=== PATIENT | female | born 1985 | race Two or more races ===

== ENCOUNTER 2021-03-07 13:52 | Inpatient (IN) | payer MEDICAID, OTHER ==
[~2021-03-07] VITALS: Ht 157.5 cm; Wt 93.5 kg
[2021-03-07 15:37] LABS: Urine Bacteria FEW /hpf (None Seen); Urine Blood 1+ /uL (Negative); Urine Mucus FEW (None Seen); Urine WBC 12 /hpf (0 - 5)
[2021-03-07 16:02] LABS: Basophils # (auto) 0.1 10 ^3/uL (0-0.2); Basophils % (auto) 0.4 % (0.0-2.0); Eosinophils # (auto) 0 10 ^3/uL (0-0.8); Eosinophils % (auto) 0.1 % (0.0-7.0); Hematocrit 39.6 % (36.0-46.0); Hemoglobin 13.2 g/dL (12.2-16.2); Lymphocytes # (auto) 1.2 10 ^3/uL (0.4-5.4); Mean Corpuscular Hemoglobin 27.2 pg (28.0-32.0); Mean Corpuscular Hgb Conc. 33.3 g/dL (32.0-36.0); Mean Corpuscular Volume 81.8 fL (80.0-100.0); Monocytes # (auto) 0.6 10 ^3/uL (0-1.3); Monocytes % (auto) 4.4 % (0.0-12.0); Neutrophils # (auto) 11.3 10 ^3/uL (1.6-8.6); Neutrophils % (auto) 86.1 % (37.0-80.0); Nucleated Red Blood Cells % 0.1 %; Red Blood Cells 4.83 10^6/uL (4.0-5.20); Red Cell Distribution Width 14.6 % (11.8-14.3); White Blood Cell 13.2 10^3/uL (4.4-10.8)
[2021-03-07 16:28] LABS: Albumin 2.8 g/dL (3.4-5.0); BUN/Creatinine Ratio 9.7; Bilirubin, Total 0.8 mg/dL (0.2-1.0); Calcium 8.5 mg/dL (8.5-10.1); Total Protein 6.7 g/dL (6.4-8.2)
[2021-03-07] MEDS ORDERED: IOHEXOL 300 MG/ML 100ML BOTTLE IJ ONE (18:37)
[2021-03-07] MEDS ORDERED: ACETAMINOPHEN 325 MG TAB PO ONE (18:45)
[2021-03-07] MEDS ORDERED: ONDANSETRON HCL 4 MG/2 ML VIAL IV ONE (18:45)
[2021-03-07] MEDS ORDERED: FAMOTIDINE (10MG/ML) 2ML VL IV ONE (18:45)
[2021-03-07] MEDS ORDERED: DOXYCYCLINE 100MG/250ML 250 ML IV ONE (20:15)
[2021-03-07] MEDS ORDERED: cefTRIAXone 1GM/50ML D5W 50 ML IV ONE (20:15)
[2021-03-07] MEDS ORDERED: metroNIDAZOLE 500MG/100ML 100 ML IV ONE (20:15)
[2021-03-07] MEDS ORDERED: LACTATED RINGER'S 1,000 ML IV ONE (20:15)
[2021-03-07] MEDS ORDERED: HYDROcodone-ACET 5/325MG TAB PO ONE (20:45)
[2021-03-08] MEDS ORDERED: DEXTROSE (50%) 50ML SYRG IV PRN (01:15)
[2021-03-08] MEDS ORDERED: MORPHINE SULFATE INJECTION 2 MG/ML SYRG IV PRN (02:45)
[2021-03-08] MEDS ORDERED: NITROGLYCERIN 0.4 MG SL TAB SL PRN (02:45)
[2021-03-08] MEDS: ONDANSETRON HCL 4 MG/2 ML VIAL IV PRN ×2 (03:00→09:20)
[2021-03-08] MEDS: SODIUM CHLORIDE 0.9% 1,000 ML IV SCH ×2 (03:00→18:20)
[2021-03-08 03:31] LABS: Basophils # (auto) 0.1 10 ^3/uL (0-0.2); Basophils % (auto) 0.7 % (0.0-2.0); Eosinophils # (auto) 0.1 10 ^3/uL (0-0.8); Eosinophils % (auto) 0.5 % (0.0-7.0); Hematocrit 37.5 % (36.0-46.0); Hemoglobin 12.3 g/dL (12.2-16.2); Lymphocytes # (auto) 1.4 10 ^3/uL (0.4-5.4); Mean Corpuscular Hemoglobin 27.3 pg (28.0-32.0); Mean Corpuscular Hgb Conc. 32.8 g/dL (32.0-36.0); Mean Corpuscular Volume 83.2 fL (80.0-100.0); Monocytes # (auto) 0.7 10 ^3/uL (0-1.3); Monocytes % (auto) 5.4 % (0.0-12.0); Neutrophils # (auto) 11.3 10 ^3/uL (1.6-8.6); Neutrophils % (auto) 83.4 % (37.0-80.0); Nucleated Red Blood Cells % 0.1 %; Red Cell Distribution Width 14.3 % (11.8-14.3); White Blood Cell 13.6 10^3/uL (4.4-10.8)
[2021-03-08 03:42] LABS: Albumin 2.5 g/dL (3.4-5.0); BUN/Creatinine Ratio 16.4; Calcium 8.2 mg/dL (8.5-10.1); Potassium 4.3 mmol/L (3.5-5.1)
[2021-03-08 03:45] LABS: Bilirubin, Total 0.7 mg/dL (0.2-1.0); Total Protein 6.6 g/dL (6.4-8.2)
[2021-03-08] MEDS: InsuLIN REG 1unit/0.01ml Soln (100units/ml) SC SCH ×3 (06:30→18:20)
[2021-03-08] MEDS: metroNIDAZOLE 500MG/100ML 100 ML IV SCH ×2 (06:30→13:56)
[2021-03-08] MEDS: ACCU-CHEK COMFORT CURVE STRIP VI SCH ×3 (06:30→18:19)
[2021-03-08] MEDS: FAMOTIDINE (10MG/ML) 2ML VL IV SCH (09:20)
[2021-03-08] MEDS: MORPHINE SULFATE 4 MG/ML SYR/VIAL IV PRN ×2 (09:21→13:56)
[2021-03-08] MEDS: HYDROcodone-ACET 5/325MG TAB PO PRN ×2 (11:16→17:25)
[2021-03-08] MEDS: ACETAMINOPHEN 325 MG TAB PO PRN (19:57)
[2021-03-09] MEDS: MORPHINE SULFATE 4 MG/ML SYR/VIAL IV PRN ×2 (00:14→17:53)
[2021-03-09] MEDS: InsuLIN REG 1unit/0.01ml Soln (100units/ml) SC SCH ×5 (02:09→23:59)
[2021-03-09] MEDS: HYDROcodone-ACET 5/325MG TAB PO PRN ×3 (02:09→14:13)
[2021-03-09] MEDS: cefTRIAXone 1GM/50ML D5W 50 ML IV SCH ×2 (02:21→22:38)
[2021-03-09] MEDS: FAMOTIDINE (10MG/ML) 2ML VL IV SCH ×3 (02:21→22:38)
[2021-03-09] MEDS: metroNIDAZOLE 500MG/100ML 100 ML IV SCH ×4 (04:00→22:38)
[2021-03-09 06:06] LABS: Basophils # (auto) 0 10 ^3/uL (0-0.2); Basophils % (auto) 0.2 % (0.0-2.0); Eosinophils # (auto) 0.1 10 ^3/uL (0-0.8); Eosinophils % (auto) 0.6 % (0.0-7.0); Hematocrit 36.1 % (36.0-46.0); Lymphocytes # (auto) 1.1 10 ^3/uL (0.4-5.4); Lymphocytes % (auto) 8.6 % (10.0-50.0); Mean Corpuscular Hemoglobin 27.7 pg (28.0-32.0); Mean Corpuscular Hgb Conc. 33.3 g/dL (32.0-36.0); Mean Corpuscular Volume 83.3 fL (80.0-100.0); Monocytes # (auto) 0.9 10 ^3/uL (0-1.3); Monocytes % (auto) 6.5 % (0.0-12.0); Neutrophils % (auto) 84.1 % (37.0-80.0); Nucleated Red Blood Cells % 0.3 %; Red Blood Cells 4.33 10^6/uL (4.0-5.20); Red Cell Distribution Width 14.6 % (11.8-14.3); White Blood Cell 13.1 10^3/uL (4.4-10.8)
[2021-03-09 06:24] LABS: Alanine Aminotransferase 12 U/L (13-56); Albumin 1.8 g/dL (3.4-5.0); Anion Gap 11 (5-15); Aspartate Aminotransferase 18 U/L (15-37); BUN/Creatinine Ratio 11.9; Blood Urea Nitrogen 5 mg/dL (7-18); Calcium 8.1 mg/dL (8.5-10.1); Carbon Dioxide 18 mmol/L (21-32); Chloride 105 mmol/L (98-107); GFR African American 222 mL/min; GFR Non-African American 184 mL/min; Glucose 186 mg/dL (74-106); Potassium 4.7 mmol/L (3.5-5.1); Sodium 134 mmol/L (136-145)
[2021-03-09 06:27] LABS: Alkaline Phosphatase 105 U/L (45-117); Bilirubin, Total 0.4 mg/dL (0.2-1.0); Total Protein 6.4 g/dL (6.4-8.2)
[2021-03-09] MEDS: ACCU-CHEK COMFORT CURVE STRIP VI SCH ×5 (07:38→23:59)
[2021-03-09] MEDS: SODIUM CHLORIDE 0.9% 1,000 ML IV SCH ×2 (10:35→22:39)
[2021-03-09] MEDS ORDERED: HYDROmorphone HCL 2 MG/ML VL IV ONE (10:45)
[2021-03-09] MEDS: ONDANSETRON HCL 4 MG/2 ML VIAL IV PRN (10:59)
[2021-03-09] MEDS ORDERED: HYDROmorphone HCL 2 MG/ML VL ONE (11:19)
[2021-03-09] MEDS: DOXYCYCLINE 100MG/250ML 250 ML IV SCH (15:15)
[2021-03-09] MEDS ORDERED: INSU1INJ19 SC (16:43)
[2021-03-10] VITALS: BP 111/62
[2021-03-10] MEDS: ACETAMINOPHEN 325 MG TAB PO PRN
[2021-03-10] MEDS: MORPHINE SULFATE 4 MG/ML SYR/VIAL IV PRN (01:32)
[2021-03-10 05:03] LABS: Basophils # (auto) 0 10 ^3/uL (0-0.2); Eosinophils # (auto) 0 10 ^3/uL (0-0.8); Eosinophils % (auto) 0.4 % (0.0-7.0); Hemoglobin 11.5 g/dL (12.2-16.2); Lymphocytes # (auto) 1.1 10 ^3/uL (0.4-5.4); Monocytes # (auto) 0.8 10 ^3/uL (0-1.3)
[2021-03-10 05:05] LABS: Basophils % (auto) 0.2 % (0.0-2.0); Hematocrit 35.4 % (36.0-46.0); Lymphocytes % (auto) 10.7 % (10.0-50.0); Mean Corpuscular Hemoglobin 26.8 pg (28.0-32.0); Mean Corpuscular Hgb Conc. 32.5 g/dL (32.0-36.0); Mean Corpuscular Volume 82.3 fL (80.0-100.0); Monocytes % (auto) 7.9 % (0.0-12.0); Neutrophils # (auto) 8.4 10 ^3/uL (1.6-8.6); Neutrophils % (auto) 80.8 % (37.0-80.0); Nucleated Red Blood Cells % 0.1 %; Red Cell Distribution Width 14.4 % (11.8-14.3); White Blood Cell 10.4 10^3/uL (4.4-10.8)
[2021-03-10 05:14] LABS: Albumin 1.8 g/dL (3.4-5.0); Calcium 8.2 mg/dL (8.5-10.1); Magnesium 2.1 mg/dL (1.6-2.6); Potassium 4.8 mmol/L (3.5-5.1)
[2021-03-10 05:20] LABS: BUN/Creatinine Ratio 11.4; Bilirubin, Total 0.3 mg/dL (0.2-1.0); Total Protein 6.4 g/dL (6.4-8.2)
[2021-03-10] MEDS: HYDROcodone-ACET 5/325MG TAB PO PRN ×5 (07:10→22:17)
[2021-03-10] MEDS: metroNIDAZOLE 500MG/100ML 100 ML IV SCH ×3 (08:56→22:17)
[2021-03-10] MEDS: DOXYCYCLINE 100MG/250ML 250 ML IV SCH ×2 (08:57→15:15)
[2021-03-10] MEDS: InsuLIN REG 1unit/0.01ml Soln (100units/ml) SC SCH ×5 (08:59→22:14)
[2021-03-10 09:00] VITALS: BP 120/63
[2021-03-10] MEDS: ACCU-CHEK COMFORT CURVE STRIP VI SCH ×3 (09:00→17:06)
[2021-03-10] MEDS: FAMOTIDINE (10MG/ML) 2ML VL IV SCH ×2 (09:34→22:11)
[2021-03-10 12:09] VITALS: BP 121/73
[2021-03-10] MEDS: ONDANSETRON HCL 4 MG/2 ML VIAL IV PRN (16:10)
[2021-03-10 16:48] VITALS: BP 104/62
[2021-03-10] MEDS ORDERED: INSULIN LANTUS (GLARGINE) 1 /0.01ml (100units/ml) SC SCH (22:00)
[2021-03-10] MEDS: cefTRIAXone 1GM/50ML D5W 50 ML IV SCH ×2 (22:11→22:35)
[2021-03-10] MEDS: SODIUM CHLORIDE 0.9% 1,000 ML IV SCH (22:25)
[2021-03-11] MEDS: DOXYCYCLINE 100MG/250ML 250 ML IV SCH ×2 (04:33→07:42)
[2021-03-11] MEDS: HYDROcodone-ACET 5/325MG TAB PO PRN ×3 (04:37→13:19)
[2021-03-11 06:00] VITALS: BP 143/87
[2021-03-11] MEDS: InsuLIN REG 1unit/0.01ml Soln (100units/ml) SC SCH ×2 (06:50→12:24)
[2021-03-11 07:25] LABS: Basophils # (auto) 0 10 ^3/uL (0-0.2); Basophils % (auto) 0.2 % (0.0-2.0); Eosinophils # (auto) 0 10 ^3/uL (0-0.8); Lymphocytes # (auto) 0.9 10 ^3/uL (0.4-5.4); Mean Corpuscular Volume 80.9 fL (80.0-100.0)
[2021-03-11 07:27] LABS: Eosinophils % (auto) 0.4 % (0.0-7.0); Hematocrit 32.6 % (36.0-46.0); Lymphocytes % (auto) 9.9 % (10.0-50.0); Mean Corpuscular Hemoglobin 27.3 pg (28.0-32.0); Mean Corpuscular Hgb Conc. 33.7 g/dL (32.0-36.0); Monocytes # (auto) 0.8 10 ^3/uL (0-1.3); Monocytes % (auto) 8.8 % (0.0-12.0); Neutrophils # (auto) 7.4 10 ^3/uL (1.6-8.6); Neutrophils % (auto) 80.7 % (37.0-80.0); Red Blood Cells 4.03 10^6/uL (4.0-5.20); White Blood Cell 9.1 10^3/uL (4.4-10.8)
[2021-03-11] MEDS: ACCU-CHEK COMFORT CURVE STRIP VI SCH ×3 (07:41→12:09)
[2021-03-11 07:46] LABS: Potassium 3.8 mmol/L (3.5-5.1)
[2021-03-11 07:53] LABS: Calcium 7.8 mg/dL (8.5-10.1)
[2021-03-11] MEDS: metroNIDAZOLE 500MG/100ML 100 ML IV SCH ×2 (08:15→14:00)
[2021-03-11 08:49] VITALS: BP 119/65
[2021-03-11] MEDS: FAMOTIDINE (10MG/ML) 2ML VL IV SCH (08:54)
[2021-03-11] MEDS ORDERED: ENOXAPARIN SOD 40 MG/0.4 ML SYRINGE SC SCH (10:00)
[2021-03-11] MEDS ORDERED: DOXY-286 PO (10:18)
[2021-03-11] MEDS ORDERED: METR500T PO (10:18)
[2021-03-11 12:35] VITALS: BP 124/66
[2021-03-11 12:51] VITALS: BP 124/66
== END 2021-03-11 14:25 | disposition home or self-care (01) | DRG 720 ==
LOC: ER 13:52 → OVERFLOW 03-08 02:41 → WEST WING 03-09 16:15
PROVIDERS: ADMIT Nurse Practitioner Family; ATTEND Internal Medicine
DX: A41.9 Sepsis, unspecified organism (principal); E44.0 Moderate protein-calorie malnutrition; E88.09 Other disorders of plasma-protein metabolism, not elsewhere classified; D72.829 Elevated white blood cell count, unspecified; E11.65 Type 2 diabetes mellitus with hyperglycemia; E66.9 Obesity, unspecified; N70.93 Salpingitis and oophoritis, unspecified; F17.210 Nicotine dependence, cigarettes, uncomplicated; N73.9 Female pelvic inflammatory disease, unspecified; Z20.822 Contact with and (suspected) exposure to COVID-19; Z68.37 Body mass index [BMI] 37.0-37.9, adult; Z79.4 Long term (current) use of insulin; Z80.6 Family history of leukemia; Z82.49 Family history of ischemic heart disease and other diseases of the circulatory system; Z83.3 Family history of diabetes mellitus
CPT/HCPCS: 36415; 74177; 80048; 80053; 80061; 81001; 81025; 82962; 83036; 83605; 83735; 84443; 85025; 86850; 86900; 86901; 87040; 87086; 87426; 96365; 96367; 96368; 96375; G0378; J0696; J1815; J2405; J3490